=== PATIENT | male | born 1980 | race Caucasian/White ===

== ENCOUNTER 2017-03-12 02:19 | Emergency (ER) | payer SELFPAY ==
[2017-03-12] MEDS ORDERED: Naproxen 500 MG TAB ONE (03:20)
[2017-03-12] MEDS ORDERED: HYDROcodone/Acetaminophen 10/325 mg Tablet ONE (03:20)
[2017-03-12] MEDS ORDERED: Acetaminophen/Codeine 30-300mg Tablet ONE (04:47)
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
== END 2017-03-12 05:17 | disposition home or self-care (01) ==
LOC: MADERS 02:19
DX: S42.115A Nondisplaced fracture of body of scapula, left shoulder, initial encounter for closed fracture (principal); I10 Essential (primary) hypertension; F32.9 Major depressive disorder, single episode, unspecified; F29 Unspecified psychosis not due to a substance or known physiological condition; F17.210 Nicotine dependence, cigarettes, uncomplicated; V43.62XA Car passenger injured in collision with other type car in traffic accident, initial encounter

== ENCOUNTER 2019-04-09 11:08 | Outpatient (CLI) | payer SELFPAY ==
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
== END 2019-04-09 11:09 | disposition home or self-care (01) ==
LOC: MADRAD 11:08
PROVIDERS: ATTEND Family Medicine
DX: M79.641 Pain in right hand (principal)

== ENCOUNTER 2022-05-22 15:19 | Emergency (ER) | payer SELFPAY ==
[~2022-05-22 15:19] MED LIST: Sodium Chloride 0.9% 1,000 ML BAG ONE
[2022-05-22 16:22] LABS: #Basophils 0.1 thou/uL (0.0-0.2); #Eosinphils 0.1 thou/uL (0.0-0.7); #Lymphocytes 2.3 thou/uL (1.20-3.40); #Monocytes 0.6 thou/uL (0.11-0.59); #Neutrophils 5.4 thou/uL (1.40-6.50); %Eosinophils 0.8 % (0.0-10.0); %Lymphocytes 27.3 % (21.0-51.0); %Monocytes 6.5 % (0.0-10.0); %Neutrophils 64.5 % (42.0-75.0); Hemoglobin 15.4 g/dL (14.0-18.0); Mean Corpuscular HGB CONC 32.8 g/dL (32.0-36.0); Mean Corpuscular Hemoglobin 29.9 pg (27.0-31.0); Mean Corpuscular Volume 91.2 fl (78.0-98.0); Mean Platelet Volume 9.9 fL (7.4-10.4); Platelet Count 244 thou/uL (130-400); RBC Distribution Width 11.4 % (11.5-14.5); Red Blood Cell (RBC) Count 5.15 mill/uL (4.70-6.10); White Blood Cell (WBC) Count 8.4 thou/uL (4.8-10.8)
[2022-05-22] MEDS ORDERED: Metoclopramide HCl 10 MG/2 ML VIAL ONE (16:26)
[2022-05-22 16:32] LABS: ALT (SGPT) 45 U/L (8-55); AST (SGOT) 35 U/L (5-34); Alkaline Phosphatase 90 U/L (40-110); Anion Gap 16 mmol/L (10-20); BUN (Urea Nitrogen) 9 mg/dL (8.9-20.6); Bilirubin, Total 0.3 mg/dL (0.2-1.2); Calc. Creatinine Clearance 0 mL/min (70-130); Calcium 9.3 mg/dL (7.8-10.44); Carbon Dioxide 24 mmol/L (22-29); Chloride 91 mmol/L (98-107); Estimated GFR 64; Globulin 3.8 g/dL (2.4-3.5); Potassium 4.8 mmol/L (3.5-5.1); Protein, Total 7.8 g/dL (6.0-8.3); Sodium 126 mmol/L (136-145)
[2022-05-22 16:42] LABS: Glucose 723 mg/dL (70-105)
[2022-05-22] MEDS ORDERED: Insulin Regular 300 UNITS/3 ML VIAL ONE (16:55)
== END 2022-05-22 21:00 | disposition short-term general hospital (02) ==
LOC: MADERS 15:19
DX: E11.65 Type 2 diabetes mellitus with hyperglycemia (principal); I10 Essential (primary) hypertension; F17.210 Nicotine dependence, cigarettes, uncomplicated; Z79.84 Long term (current) use of oral hypoglycemic drugs
CPT/HCPCS: 36416; 80053; 85025; 96361; 96365; 96366; 96375; J1815; J2765; J7050